=== PATIENT | male | born 1975 | race Caucasian/White ===

== ENCOUNTER 2017-05-15 10:15 | Emergency (ER) | payer MEDICARE, OTHER ==
[2017-05-15 10:19] VITALS: BP 136/84; PULSE 80; RESP 20; TEMP 98
--- NOTE | 2017-05-15 10:48 | ED ---
General Adult HPI - General Chief complaint: ENT Stated complaint: tooth problems Time Seen by Provider: 05/15/17 10:24 Source: patient, RN notes reviewed Mode of arrival: ambulatory Limitations: no limitations - History of Present Illness Initial comments: Patient is a pleasant 41-year-old male presenting to the emergency department complaining of sinus problems. Patient has had several episodes since having teeth pulled. Patient states when he states when he had teeth pulled a perforated is sinus. Patient has had sinus infections several times since then. Patient ate Augmentin has worked well previously for him. Patient states he was recently on amoxicillin however that does not seem to be helping. Patient has sinus congestion and states he can taste infection. Patient also has a little bit of sore throat. No fevers. Patient does have an appointment Tuesday with his oral maxillary facial surgeon. - Related Data Previous Rx's Medication Instructions Recorded Amoxic-Pot Clav 875-125Mg 1 tab PO Q12HR #20 tablet 05/15/17 [Augmentin 875-125] Allergies Allergy/AdvReac Type Severity Reaction Status Date / Time No Known Allergies Allergy Verified 05/15/17 10:19 Review of Systems ROS Statement: Those systems with pertinent positive or pertinent negative responses have been documented in the HPI. ROS Other: All systems not noted in ROS Statement are negative. Constitutional: Denies: fever Eyes: Denies: eye pain ENT: Reports: throat pain, congestion. Denies: ear pain Respiratory: Denies: dyspnea Cardiovascular: Denies: chest pain Endocrine: Denies: fatigue Gastrointestinal: Denies: abdominal pain Genitourinary: Denies: dysuria Musculoskeletal: Denies: back pain Skin: Denies: rash Neurological: Denies: weakness Past Medical History Additional Past Medical History / Comment(s): broken arm, ankyllosis spondylitis , osteoporosis, joint pain History of Any Multi-Drug Resistant Organisms: None Reported Past Surgical History: No Surgical Hx Reported Additional Past Surgical History / Comment(s): left jaw surgery by Dr Toribio Past Psychological History: No Psychological Hx Reported Smoking Status: Current every day smoker Past Alcohol Use History: None Reported Past Drug Use History: None Reported General Exam Limitations: no limitations General appearance: alert, in no apparent distress Head exam: Present: atraumatic Eye exam: Present: normal appearance, PERRL ENT exam: Present: normal oropharynx, other (Patient does have tenderness over the right maxillary sinus. Upper mouth is edentulous without tenderness or erythema or swelling.) Neck exam: Present: normal inspection, lymphadenopathy. Absent: meningismus Respiratory exam: Present: normal lung sounds bilaterally Cardiovascular Exam: Present: regular rate, normal rhythm GI/Abdominal exam: Present: soft. Absent: tenderness Neurological exam: Present: alert Psychiatric exam: Present: normal affect, normal mood Skin exam: Present: normal color Course Vital Signs 05/15/17 10:17 Temperature 98.0 F Pulse Rate 80 Respiratory 20 Rate Blood Pressure 136/84 O2 Sat by Pulse 98 Oximetry Disposition Clinical Impression: Acute sinusitis Disposition: HOME SELF-CARE Condition: Stable Instructions: Sinusitis (ED) Additional Instructions: Please follow-up with your surgeon Tuesday as scheduled. Return for fevers, swelling, difficulty breathing, not tolerating fluids, worsening symptoms or other concerns. Prescriptions: Amoxic-Pot Clav 875-125Mg [Augmentin 875-125] 1 tab PO Q12HR #20 tablet Referrals: Giancarlo Farrell MD [REFERRING] - 1-2 days Elian Newsome DO [Doctor of Osteopathic Medicine] - 1-2 days Time of Disposition: 10:48
== END 2017-05-15 10:59 | disposition home or self-care (01) ==
LOC: EC 10:15
DX: J01.90 Acute sinusitis, unspecified (principal); R59.0 Localized enlarged lymph nodes; F17.200 Nicotine dependence, unspecified, uncomplicated; Z98.890 Other specified postprocedural states
CPT/HCPCS: 99283

== ENCOUNTER 2017-06-01 10:49 | Emergency (ER) | payer MEDICARE, OTHER ==
[2017-06-01 11:02] VITALS: BP 136/90; PULSE 79; RESP 17; TEMP 98
--- NOTE | 2017-06-01 11:36 | ED ---
General Adult HPI - General Chief complaint: ENT Stated complaint: sinus infection Time Seen by Provider: 06/01/17 11:21 Source: patient, RN notes reviewed, old records reviewed Mode of arrival: ambulatory Limitations: no limitations - History of Present Illness Initial comments: This is a 42-year-old male to the ER for evaluation of sinus infection. Patient concern for causes of sinus infections states he has had multiple dental issues. Patient does have ENT but has not been able to make it to the operative history. Patient denies any fevers, no significant headaches. No difficulties with breathing. No travel history no sick contacts. Patient states he usually takes antibiotics when this happens. Patient has no other complaints - Related Data Previous Rx's Medication Instructions Recorded Levofloxacin [Levaquin] 750 mg PO DAILY #7 tab 06/01/17 Allergies Allergy/AdvReac Type Severity Reaction Status Date / Time No Known Allergies Allergy Verified 06/01/17 11:38 Review of Systems ROS Statement: Those systems with pertinent positive or pertinent negative responses have been documented in the HPI. ROS Other: All systems not noted in ROS Statement are negative. Past Medical History Additional Past Medical History / Comment(s): broken arm, ankyllosis spondylitis , osteoporosis, joint pain History of Any Multi-Drug Resistant Organisms: None Reported Past Surgical History: No Surgical Hx Reported Additional Past Surgical History / Comment(s): left jaw surgery by Dr Toribio Past Psychological History: No Psychological Hx Reported Smoking Status: Current every day smoker Past Alcohol Use History: None Reported Past Drug Use History: None Reported General Exam Limitations: no limitations General appearance: alert, in no apparent distress Head exam: Present: atraumatic, normocephalic, normal inspection Eye exam: Present: normal appearance, PERRL, EOMI. Absent: scleral icterus, conjunctival injection, periorbital swelling ENT exam: Present: normal exam, mucous membranes moist Neck exam: Present: normal inspection. Absent: tenderness, meningismus, lymphadenopathy Respiratory exam: Present: normal lung sounds bilaterally. Absent: respiratory distress, wheezes, rales, rhonchi, stridor Cardiovascular Exam: Present: regular rate, normal rhythm, normal heart sounds. Absent: systolic murmur, diastolic murmur, rubs, gallop, clicks GI/Abdominal exam: Present: soft, normal bowel sounds. Absent: distended, tenderness, guarding, rebound, rigid Extremities exam: Present: normal inspection, full ROM, normal capillary refill. Absent: tenderness, pedal edema, joint swelling, calf tenderness Back exam: Present: normal inspection Neurological exam: Present: alert, oriented X3, CN II-XII intact Psychiatric exam: Present: normal affect, normal mood Skin exam: Present: warm, dry, intact, normal color. Absent: rash Course Vital Signs 06/01/17 10:58 Temperature 98.0 F Pulse Rate 79 Respiratory 17 Rate Blood Pressure 136/90 O2 Sat by Pulse 96 Oximetry Medical Decision Making - Medical Decision Making 42 female here for evaluation regarding acute on chronic sinusitis, patient given antibiotics, no acute distress and we'll discharge home Disposition Clinical Impression: Acute sinusitis, Chronic sinusitis Disposition: HOME SELF-CARE Condition: Good Instructions: Sinusitis (ED) Prescriptions: Levofloxacin [Levaquin] 750 mg PO DAILY #7 tab Referrals: Denis Lepe MD [STAFF PHYSICIAN] - 1-2 days
== END 2017-06-01 11:51 | disposition home or self-care (01) ==
LOC: EC 10:49
DX: J32.9 Chronic sinusitis, unspecified (principal); J01.90 Acute sinusitis, unspecified; F17.200 Nicotine dependence, unspecified, uncomplicated
CPT/HCPCS: 99283

== ENCOUNTER 2017-11-01 13:01 | Emergency (ER) | payer MEDICARE, OTHER ==
[2017-11-01 13:06] VITALS: BP 125/89; RESP 18; TEMP 97.1
[2017-11-01] MEDS ORDERED: IBUPROFEN 600 MG TAB PO STA (13:20)
--- NOTE | 2017-11-01 13:24 | ED ---
Skin/Abscess/FB HPI - General Chief complaint: Skin/Abscess/Foreign Body Stated complaint: hand infection Time Seen by Provider: 11/01/17 13:09 Source: patient Mode of arrival: ambulatory Limitations: no limitations - History of Present Illness Initial comments: 42-year-old male patient presented to the emergency department today for evaluation of an infection to his right hand. Patient states that he started developing redness and a wound on Tuesday. States that over the weekend the area has become more red and painful. States that today it is draining pus. He denies any fever or chills this. Denies any nausea or vomiting. States he has not work at this time and has had no wounds in his hand. Denies ever having similar symptoms to this. Patient denies any recent rash, shortness breath, chest pain, abdominal pain, diarrhea, constipation, back pain, numbness , tingling, dizziness, weakness, hematuria, dysuria, urinary urgency, urinary frequency, headache, visual changes, or any other complaints. - Related Data Previous Rx's Medication Instructions Recorded Levofloxacin [Levaquin] 750 mg PO DAILY #7 tab 06/01/17 Sulfamethoxazole/Trimethoprim 1 each PO BID #20 tablet 11/01/17 [Bactrim DS 800-160 mg] Allergies Allergy/AdvReac Type Severity Reaction Status Date / Time No Known Allergies Allergy Verified 11/01/17 13:03 Review of Systems ROS Statement: Those systems with pertinent positive or pertinent negative responses have been documented in the HPI. ROS Other: All systems not noted in ROS Statement are negative. Past Medical History Additional Past Medical History / Comment(s): broken arm, ankyllosis spondylitis , osteoporosis, joint pain History of Any Multi-Drug Resistant Organisms: None Reported Past Surgical History: No Surgical Hx Reported Additional Past Surgical History / Comment(s): left jaw surgery by Dr Toribio Past Psychological History: No Psychological Hx Reported Smoking Status: Current every day smoker Past Alcohol Use History: None Reported Past Drug Use History: None Reported General Exam Limitations: no limitations General appearance: alert, in no apparent distress, anxious, other (This is a well-developed, well-nourished adult male patient in no acute distress. Vital signs upon presentation were temperature 97.1F, pulse 1:15, respirations 18, blood pressure 125/89, pulse ox 99% on room air.) Eye exam: Present: normal appearance, PERRL, EOMI. Absent: scleral icterus, conjunctival injection, periorbital swelling ENT exam: Present: normal exam, normal oropharynx, mucous membranes moist Neck exam: Present: normal inspection. Absent: tenderness, meningismus, lymphadenopathy Respiratory exam: Present: normal lung sounds bilaterally. Absent: respiratory distress, wheezes, rales, rhonchi, stridor Cardiovascular Exam: Present: normal rhythm, tachycardia, normal heart sounds. Absent: systolic murmur, diastolic murmur, rubs, gallop, clicks GI/Abdominal exam: Present: soft, normal bowel sounds. Absent: distended, tenderness, guarding, rebound, rigid Extremities exam: Present: full ROM, tenderness (Over the palmar aspect of the right hand), normal capillary refill, other (There is a small area of abscess with minimal surrounding erythema. Abscess area does exhibit purulent drainage. No streaking. Radial pulse 2+. No hand swelling.). Absent: normal inspection, pedal edema, joint swelling, calf tenderness Neurological exam: Present: alert, oriented X3, CN II-XII intact Psychiatric exam: Present: normal affect, normal mood Skin exam: Present: warm, dry, intact, normal color. Absent: rash Course Vital Signs 11/01/17 11/01/17 13:03 13:29 Temperature 97.1 F L Pulse Rate 115 H 110 H Respiratory 18 Rate Blood Pressure 125/89 O2 Sat by Pulse 99 Oximetry Medical Decision Making - Medical Decision Making 42-year-old male patient presented to the emergency department today for evaluation of infection to the palmar aspect of the right hand. Physical examination does reveal small area of abscess with surrounding erythema. Abscess is draining. Drainage. This has been cultured. Patient will be started on Bactrim. He is instructed to soak the hand at least 3 times per day and warm water. He is instructed to take ibuprofen for pain control. He is instructed to follow-up with his primary care physician for recheck in 1-2 days. Instructed to return here immediately for any new, worsening, or concerning symptoms. He verbalizes understanding and agrees with this plan. Disposition Clinical Impression: Abscess of right hand Disposition: HOME SELF-CARE Condition: Good Instructions: Abscess (ED), Warm Compress or Soak (ED) Additional Instructions: Do warm soaks at least 3 times per day. Take showers with antibacterial soaps. Complete antibiotic prescription in full. Follow-up with the primary care physician for recheck in 1-2 days. Return here immediately for any new, worsening, or concerning symptoms. Prescriptions: Sulfamethoxazole/Trimethoprim [Bactrim DS 800-160 mg] 1 each PO BID #20 tablet Referrals: None,Stated [Primary Care Provider] - 1-2 days Time of Disposition: 13:24
[2017-11-01 13:29] VITALS: PULSE 110
== END 2017-11-01 13:33 | disposition home or self-care (01) ==
LOC: EC 13:01
DX: L02.511 Cutaneous abscess of right hand (principal); F17.200 Nicotine dependence, unspecified, uncomplicated
CPT/HCPCS: 87070; 87077; 87186; 87205; 99283

== ENCOUNTER 2022-05-07 21:47 | Emergency (ER) | payer MEDICARE, OTHER ==
[2022-05-07 22:16] VITALS: BP 117/70; PULSE 84; RESP 16; TEMP 96.8
[2022-05-07] MEDS ORDERED: HYDROcodone/APAP 5-325MG 1 EACH TAB PO STA (22:46)
[2022-05-07] MEDS ORDERED: LIDOCAINE 1% INJ 10MG/ML (5 ML VIAL-PF) SQ ONE (22:49)
[2022-05-07] MEDS ORDERED: DIPH,PERTUS(ACELL)TETVAC-LF 0.5 ML VIAL IM ONE (22:49)
--- NOTE | 2022-05-07 23:11 | XR ---
EXAMINATION TYPE: XR hand complete LT DATE OF EXAM: 05/07/2022 COMPARISON: NONE HISTORY: Pain TECHNIQUE: 3 views FINDINGS: Metacarpals are intact. There are no erosions. There is deformity at the radiocarpal joint consistent with arthritis. No evidence of a fracture. No foreign body. IMPRESSION: Posttraumatic osteoarthritis of the radiocarpal joint. Old healed distal radius fracture. No acute fracture. No radiopaque foreign body.
--- NOTE | 2022-05-07 23:11 | ED ---
Wound/Laceration HPI - General Chief Complaint: Wound/Laceration Stated Complaint: Thumb Laceration Time Seen by Provider: 05/07/22 22:40 Source: patient Mode of arrival: EMS Limitations: no limitations - History of Present Illness Initial Comments: Patient is a 46-year-old male who presents to the emergency department with a chief complaint laceration. Patient states he cut his left thumb with a steak knife while trying to cut a popsicle. Patient states this was an accident. Denies numbness and tingling. Last tetanus unknown. - Related Data Previous Rx's Medication Instructions Recorded levoFLOXacin [Levaquin] 750 mg PO DAILY #7 tab 06/01/17 Sulfamethoxazole/Trimethoprim 1 each PO BID #20 tablet 11/01/17 [Bactrim DS 800-160 mg] Allergies Allergy/AdvReac Type Severity Reaction Status Date / Time No Known Allergies Allergy Verified 11/01/17 13:03 Review of Systems ROS Statement: Those systems with pertinent positive or pertinent negative responses have been documented in the HPI. ROS Other: All systems not noted in ROS Statement are negative. Past Medical History Additional Past Medical History / Comment(s): broken arm, ankyllosis spon dylitis, osteoporosis, joint pain History of Any Multi-Drug Resistant Organisms: MRSA Date of last positivie culture/infection: 11/01/17 MDRO Source:: HAND Past Surgical History: No Surgical Hx Reported Additional Past Surgical History / Comment(s): left jaw surgery by Dr Toribio Past Psychological History: No Psychological Hx Reported Past Alcohol Use History: None Reported Past Drug Use History: None Reported General Exam Limitations: no limitations General appearance: alert, in no apparent distress Head exam: Present: atraumatic, normocephalic, normal inspection Respiratory exam: Present: normal lung sounds bilaterally. Absent: respiratory distress, wheezes, rales, rhonchi, stridor Cardiovascular Exam: Present: regular rate, normal rhythm, normal heart sounds. Absent: systolic murmur, diastolic murmur, rubs, gallop, clicks GI/Abdominal exam: Present: soft, normal bowel sounds. Absent: distended, tenderness, guarding, rebound, rigid Neurological exam: Present: alert, oriented X3, CN II-XII intact Psychiatric exam: Present: normal affect, normal mood Skin exam: Present: warm, dry, intact, normal color. Absent: rash Course Vital Signs 05/07/22 22:13 Temperature 96.8 F L Pulse Rate 84 Respiratory 16 Rate Blood Pressure 117/70 O2 Sat by Pulse 100 Oximetry Procedures - Laceration Laceration #1 Consent Obtained: verbal consent Indication: laceration Site: hand (left) Description: irregular Depth: simple, single layer Sedation/Analgesia: none Anesthetic Used: lidocaine 1% Anesthesia Technique: local infiltration Pre-repair: wound explored, irrigated extensively Type of Sutures: nylon Size of Sutures: 5-0 Number of Sutures: 5 Technique: simple, interrupted, vertical mattress, other (figure 8) Patient Tolerated Procedure: well, no complications Medical Decision Making - Medical Decision Making This is a 46-year-old male presents with laceration. Thorough history and examination were performed. 4 cm laceration over the left lateral thumb. Full range of motion. Neurovascular intact. Laceration was irrigated extensively and well approximated with 5 sutures. Patient tolerated procedure well with no complication. Tetanus updated. Dr. Evans is my attending. Disposition Clinical Impression: Laceration Disposition: HOME SELF-CARE Condition: Good Instructions (If sedation given, give patient instructions): Care For Your Stitches (ED), Laceration (ED) Additional Instructions: Leave wound uncovered. Keep wound clean and dry. Wash with a mild soap. Take Tylenol or anti-inflammatories such as Motrin for pain. Follow-up with primary care provider in 1-2 days. Return for suture removal in 7-10 days. Report back to the emergency department if you experience new, concerning, or worsening symptoms. Is patient prescribed a controlled substance at d/c from ED?: No Referrals: None,Stated [Primary Care Provider] - 1-2 days Time of Disposition: 23:11
== END 2022-05-08 00:02 | disposition home or self-care (01) ==
LOC: EC 21:47
DX: S61.012A Laceration without foreign body of left thumb without damage to nail, initial encounter (principal); Z23 Encounter for immunization; W26.0XXA Contact with knife, initial encounter
CPT/HCPCS: 73130; 90715; 99282; 12002; 90471; J2001

== ENCOUNTER 2023-06-18 13:31 | Emergency (ER) | payer MEDICARE, OTHER ==
[2023-06-18 13:40] VITALS: BP 135/85; PULSE 100; RESP 20; TEMP 98.3
[2023-06-18 14:49] LABS: Appearance,Urine Turbid (Clear); Bilirubin,Urine Negative (Negative); Blood,Urine Small (Negative); Color,Urine Colorless; Glucose,Urine (UA) Negative (Negative); Ketones,Urine Negative (Negative); Leukocyte Esterase,Urine Large (Negative); Mucus,Urine Rare /hpf; Nitrite,Urine Negative (Negative); Protein,Urine Trace (Negative); RBC,Urine 27 /hpf (0-5); Specific Gravity,Urine 1.014 (1.001-1.035); Urobilinogen,Urine <2.0 mg/dL (<2.0); WBC,Urine >182 /hpf (0-5)
[2023-06-18] MEDS ORDERED: cefTRIAXone 1,000 MG VIAL (IM USE) IM STA (15:02)
[2023-06-18] MEDS ORDERED: DOXYCYCLINE 100 MG CAP PO STA (15:04)
[2023-06-18] MEDS ORDERED: metroNIDAZOLE 500 MG TAB PO STA (15:04)
--- NOTE | 2023-06-18 15:07 | ED ---
General Adult HPI - General Chief complaint: Urogenital Stated complaint: pain during bathroom Time Seen by Provider: 06/18/23 13:44 Source: patient, RN notes reviewed, old records reviewed Mode of arrival: ambulatory Limitations: no limitations - History of Present Illness Initial comments: Patient is a 48-year-old male who presents emergency Department complaining of penile discharge. Has been ongoing for 4-5 days. Does endorse recent unprotected sex. No history of STDs. States the discharge is white. Endorses some burning with urination as well. Denies any abdominal pain, nausea, vomiting. Denies any fevers or chills. Has no other acute symptoms. Concerned that he may have an STD. Presents for further evaluation. - Related Data Previous Rx's Medication Instructions Recorded levoFLOXacin [Levaquin] 750 mg PO DAILY #7 tab 06/01/17 Sulfamethoxazole/Trimethoprim 1 each PO BID #20 tablet 11/01/17 [Bactrim DS 800-160 mg] Doxycycline Hyclate 100 mg PO BID 14 Days #28 capsule 06/18/23 Allergies Allergy/AdvReac Type Severity Reaction Status Date / Time No Known Allergies Allergy Verified 06/18/23 13:40 Review of Systems ROS Statement: Those systems with pertinent positive or pertinent negative responses have been documented in the HPI. Review of Systems: CONST: Denies fever EYES: Denies blurry vision ENT: Denies nasal congestion C/V: Denies Chest pain RESP: Denies shortness of breath GI: Denies abdominal pain : Endorses dysuria SKIN: Denies rash. MSK: Denies joint pain. NEURO: Denies headache ROS Other: All systems not noted in ROS Statement are negative. Past Medical History Additional Past Medical History / Comment(s): broken arm, ankyllosis spondylitis, osteoporosis, joint pain History of Any Multi-Drug Resistant Organisms: MRSA Date of last positivie culture/infection: 11/01/17 MDRO Source:: HAND Past Surgical History: No Surgical Hx Reported Additional Past Surgical History / Comment(s): left jaw surgery by Dr Toribio Past Psychological History: No Psychological Hx Reported Smoking Status: Current every day smoker Past Alcohol Use History: None Reported Past Drug Use History: None Reported General Exam - General Exam Comments Initial Comments: General: Appears in no acute distress. HEAD: Normal with no signs of head trauma. EYES: EOMI. ENT: Hearing grossly intact. RESPIRATORY: No respiratory distress. C/V: Regular rate and rhythm. ABD: Abdomen is nondistended. No tenderness to palpation. : White discharge present at the tip of the penis. No rashes or lesions present. No tenderness to palpation. No scrotal edema or rashes. EXT: No obvious deformity. SKIN: No rashes or lesions observed on exposed skin. NEURO: Alert and oriented. Limitations: no limitations Course Vital Signs 06/18/23 13:37 Temperature 98.3 F Pulse Rate 100 Respiratory 20 Rate Blood Pressure 135/85 O2 Sat by Pulse 98 Oximetry Medical Decision Making - Medical Decision Making Was pt. sent in by a medical professional or institution (, PA, ENDO TECH, urgent care, hospital, or correction...) When possible be specific @ -No Did you speak to anyone other than the patient for history (EMS, parent, family, police, friend...)? What history was obtained from this source @ -No Did you review nursing and triage notes (agree or disagree)? Why? @ -I reviewed and agree with nursing and triage notes Were old charts reviewed (outside hosp., previous admission, EMS record, old EKG, old radiological studies, urgent care reports/EKG's, correction records)? Report findings @ -No old charts were reviewed Differential Diagnosis (chest pain, altered mental status, abdominal pain women, abdominal pain men, vaginal bleeding, weakness, fever, dyspnea, syncope, headache, dizziness, GI bleed, back pain, seizure, CVA, palpatations, mental health, musculoskeletal)? @ -UTI, STD, chlamydia, gonorrhea. This list is not all inclusive. EKG interpreted by me (3pts min.). @ -None done X-rays interpreted by me (1pt min.). @ -None done CT interpreted by me (1pt min.). @ -None done U/S interpreted by me (1pt. min.). @ -None done What testing was considered but not performed or refused? (CT, X-rays, U/S, labs)? Why? @ -None What meds were considered but not given or refused? Why? @ -None Did you discuss the management of the patient with other professionals (professionals i.e. , PA, ENDO TECH, lab, RT, psych nurse, director of social work, ortho tech, teacher, dog license officer supervisor, clinical case manager)? Give summary @ -No Was smoking cessation discussed for >3mins.? @ -No Was critical care preformed (if so, how long)? @ -No Were there social determinants of health that impacted care today? How? (Homelessness, low income, unemployed, alcoholism, drug addiction, transportation, low edu. Level, literacy, decrease access to med. care, shelter, rehab)? @ -No Was there de-escalation of care discussed even if they declined (Discuss DNR or withdrawal of care, Hospice)? DNR status @ -No What co-morbidities impacted this encounter? (DM, HTN, Smoking, COPD, CAD, Cancer, CVA, ARF, Chemo, Hep., AIDS, mental health diagnosis, sleep apnea, morbid obesity)? @ -None Was patient admitted / discharged? Hospital course, mention meds given and route, prescriptions, significant lab abnormalities, going to OR and other pertinent info. @ -Based on the patient's presentation and physical exam, it does appear he is having an STD. We will obtain a urinalysis and send off urine studies for chlamydia and gonorrhea. He was in agreement this plan. Vital signs within acceptable limits. He'll be treated for STD prophylaxis with a dose of IM Rocephin, 2 g of oral Flagyl, as well as be started on doxycycline. He'll be given a prescription for 2 weeks of doxycycline as well as he is symptomatic. Patient was in agreement with this plan. Patient's urinalysis shows signs of infection. Likely secondary to sexual transmitted disease and urethritis. Patient will be discharged home at this time. Strict return precautions discussed. Discussed safe sex practices. I will provide the patient with a prescription for doxycycline. I instructed the patient to follow up with their PCP in the next 1-3 days. I explained that the patient should return to the emergency department if they experience any worsening symptoms. Strict return precautions were discussed with the patient. The patient expressed understanding of these instructions. I answered all questions that the patient had. The patient was discharged home in good condition with their prescriptions and follow up information. Undiagnosed new problem with uncertain prognosis? @ -No Drug Therapy requiring intensive monitoring for toxicity (Heparin, Nitro, Insulin, Cardizem)? @ -No Were any procedures done? @ -No Diagnosis/symptom? @ -Sexually transmitted disease, urethritis Acute, or Chronic, or Acute on Chronic? @ -Acute Uncomplicated (without systemic symptoms) or Complicated (systemic symptoms)? @ -Uncomplicated Side effects of treatment? @ -No Exacerbation, Progression, or Severe Exacerbation? @ -No Poses a threat to life or bodily function? How? (Chest pain, USA, MA, pneumonia, PE, COPD, DKA, ARF, appy, cholecystitis, CVA, Diverticulitis, Homicidal, Suicidal, threat to staff... and all critical care pts) @ -No - Lab Data Lab Results 06/18/23 Range/Units 14:21 Urine Color Colorless Urine Appearance Turbid (Clear) Urine pH 7.0 (5.0-8.0) Ur Specific Jolon 1.014 (1.001-1.035) Urine Protein Trace H (Negative) Urine Glucose (UA) Negative (Negative) Urine Ketones Negative (Negative) Urine Blood Small H (Negative) Urine Nitrite Negative (Negative) Urine Bilirubin Negative (Negative) Urine Urobilinogen <2.0 (<2.0) mg/dL Ur Leukocyte Esterase Large H (Negative) Urine RBC 27 H (0-5) /hpf Urine WBC >182 H (0-5) /hpf Urine WBC Clumps Few H (None) /hpf Urine Mucus Rare H (None) /hpf Disposition Clinical Impression: Sexually transmissible disease, UTI (urinary tract infection), Urethritis Disposition: HOME SELF-CARE Condition: Good Instructions (If sedation given, give patient instructions): Sexually Tr ansmitted Diseases (ED), Safe Sex Practices (ED), Urinary Tract Infection in Men (ED) Prescriptions: Doxycycline Hyclate 100 mg PO BID 14 Days #28 capsule Is patient prescribed a controlled substance at d/c from ED?: No Referrals: None,Stated [Primary Care Provider] - 1-2 days Forms: Area PCPs Time of Disposition: 15:00
[2023-06-21 14:29] LABS: C. trachomatis,PCR Negative (Negative)
[2023-06-21 14:30] LABS: N. gonorrhoeae,PCR Positive (Negative)
== END 2023-06-18 15:29 | disposition home or self-care (01) ==
LOC: EC 13:31
DX: A64 Unspecified sexually transmitted disease (principal); N34.2 Other urethritis; F17.200 Nicotine dependence, unspecified, uncomplicated
CPT/HCPCS: 81001; 87491; 87591; 87086; 99283; 96372; J0696

== ENCOUNTER 2024-03-05 22:27 | Emergency (ER) | payer MEDICARE, OTHER ==
--- NOTE | 2024-03-05 22:58 | ED ---
Dizziness HPI - General Source: patient, RN notes reviewed Mode of arrival: EMS Limitations: no limitations <Karin Mcmanus - Last Filed: 03/05/24 23:03> <Hardik Riley - Last Filed: 03/06/24 02:04> - General Chief Complaint: Dizziness Stated Complaint: Dizziness,Vomiting Time Seen by Provider: 03/05/24 22:40 - History of Present Illness Initial Comments: Quick Note-this is a 48-year-old male who presents emergency department chief complaint of intermittent dizziness, nausea and vomiting over the past 5 days. He states that he experiences a room spinning sensation when he stands up. Denies headaches, chest pain or pressure, blurry vision, double vision, tinnitus, focal neurological deficits. He denies history of migraines.States that he feels he has the flu. (Karin Mcmanus) 48-year-old male with no significant past medical history presenting to the ED with chief complaint of dizziness. Patient states onset 5 days ago of dizziness which she describes as a room spinning with some associated nausea and vomiting. Reports over the past 5 days symptoms have been improving however with positional changes will become dizzy, nauseous again. Most recently patient reports he has developed some discomfort diffusely of his abdomen which he relates to nausea and dry heaving. No chest pain or shortness of breath. No fever or chills. Reports similar symptoms 5 years ago however was never evaluated for this and is unsure what caused this. No other complaints at this time. (Hardik Riley) - Related Data Previous Rx's Medication Instructions Recorded levoFLOXacin [Levaquin] 750 mg PO DAILY #7 tab 06/01/17 Sulfamethoxazole/Trimethoprim 1 each PO BID #20 tablet 11/01/17 [Bactrim DS 800-160 mg] Doxycycline Hyclate 100 mg PO BID 14 Days #28 capsule 06/18/23 Meclizine [Antivert] 25 mg PO TID PRN #16 tab 03/06/24 Ondansetron Odt [Zofran Odt] 4 mg PO Q8HR PRN #10 tab 03/06/24 Allergies Allergy/AdvReac Type Severity Reaction Status Date / Time No Known Allergies Allergy Verified 03/05/24 22:47 Review of Systems ROS Other: All systems not noted in ROS Statement are negative. <Karin Mcmanus - Last Filed: 03/05/24 23:03> ROS Other: All systems not noted in ROS Statement are negative. <RosemaryHardik - Last Filed: 03/06/24 02:04> ROS Statement: Those systems with pertinent positive or pertinent negative responses have been documented in the HPI. Past Medical History Additional Past Medical History / Comment(s): broken arm, ankyllosis spondylitis, osteoporosis, joint pain History of Any Multi-Drug Resistant Organisms: MRSA Date of last positivie culture/infection: 11/01/17 MDRO Source:: HAND Past Surgical History: No Surgical Hx Reported Additional Past Surgical History / Comment(s): left jaw surgery by Dr Toribio Past Psychological History: No Psychological Hx Reported Smoking Status: Former smoker Past Alcohol Use History: None Reported Past Drug Use History: None Reported <Karin Mcmanus - Last Filed: 03/05/24 23:03> General Exam Limitations: no limitations <Karin Mcmanus - Last Filed: 03/05/24 23:03> General appearance: alert, in no apparent distress Eye exam: Present: PERRL, EOMI, other (Right beating nystagmus with no vertical skew and correcting saccade on head impulse testing.) ENT exam: Present: mucous membranes moist Neck exam: Present: normal inspection Respiratory exam: Present: normal lung sounds bilaterally Cardiovascular Exam: Present: regular rate, normal rhythm GI/Abdominal exam: Present: soft, normal bowel sounds. Absent: distended, tenderness, guarding, rebound, rigid Extremities exam: Present: other (Strength and sensation equal and intact of bi lateral upper lower extremities. Radial pulses intact. DP/PT pulses intact.) Neurological exam: Present: alert, oriented X3, CN II-XII intact ([id number], [id number], rapid alternating hand movements intact.), normal gait Skin exam: Present: warm, dry <Hardik Riley - Last Filed: 03/06/24 02:04> - General Exam Comments Initial Comments: Visual Physical Exam Vital signs reviewed General: Well-appearing, nontoxic, no acute distress. Head: Normocephalic, atraumatic Eyes: PERRLA, EOMI ENT: Airway patent Chest: Nonlabored breathing Skin: No visual rash, normal skin tone Neuro: Alert and oriented 3 Musculoskeletal: No gross abnormalities (Stieler,Karin) Course <Hardik Riley - Last Filed: 03/06/24 02:04> Vital Signs 03/05/24 03/06/24 22:43 00:00 Temperature 98.4 F Pulse Rate 86 88 Respiratory 20 16 Rate Blood Pressure 134/87 136/82 O2 Sat by Pulse 98 97 Oximetry - Reevaluation(s) Reevaluation #1: 03/06/24 01:02 Patient reevaluated. Reports he is feeling significantly improved after being provided Zofran, meclizine, IV fluids. (Hardik Riley) Medical Decision Making <Karin Mcmanus - Last Filed: 03/05/24 23:03> - Lab Data Result diagrams: 03/05/24 23:08 03/06/24 00:00 <Hardik Riley - Last Filed: 03/06/24 02:04> - Medical Decision Making I completed the quick note portion of this chart signed Karin Mcmanus PA-C (Karin Mcmanus) Was pt. sent in by a medical professional or institution (MICAELA Donald, MACHINE HOOP MAKER, urgent care, hospital, or jail...) When possible be specific @ -No Did you speak to anyone other than the patient for history (EMS, parent, family, police, friend...)? What history was obtained from this source @ -No Did you review nursing and triage notes (agree or disagree)? Why? @ -I reviewed and agree with nursing and triage notes Were old charts reviewed (outside hosp., previous admission, EMS record, old EKG, old radiological studies, urgent care reports/EKG's, jail records)? Report findings @ -No old charts were reviewed Differential Diagnosis (chest pain, altered mental status, abdominal pain women, abdominal pain men, vaginal bleeding, weakness, fever, dyspnea, syncope, headache, dizziness, GI bleed, back pain, seizure, CVA, palpatations, mental health, musculoskeletal)? @ -Differential Dizziness: Benign paroxysmal positional Vertigo, Menieres disease, otitis media, acoustic neuroma, vertebrobasilar insufficiency, cerebellar stroke, encephalitis, hypovolemic, arrhythmia, coronary artery syndrome, anemia, this is not meant to be an all-inclusive list EKG interpreted by me (3pts min.). @ -EKG interpreted by me showing a sinus rhythm with nonspecific findings at 86 bpm. IN 150, QRS 99, QT/QTc 350/94. X-rays interpreted by me (1pt min.). @ -None done CT interpreted by me (1pt min.). @ -None done U/S interpreted by me (1pt. min.). @ -None done What testing was considered but not performed or refused? (CT, X-rays, U/S, labs)? Why? @ -CT brain was considered however patient feels markedly improved after medications and neurologic exam consistent with peripheral findings of vertigo. What meds were considered but not given or refused? Why? @ -None Did you discuss the management of the patient with other professionals (professionals i.e. , PA, MACHINE HOOP MAKER, lab, RT, psych nurse, social science analyst, bridge tender, teacher, grant officer, case packer)? Give summary @ -No Was smoking cessation discussed for >3mins.? @ -No Was critical care preformed (if so, how long)? @ -No Were there social determinants of health that impacted care today? How? (Homelessness, low income, unemployed, alcoholism, drug addiction, transportation, low edu. Level, literacy, decrease access to med. care, care home, rehab)? @ -No Was there de-escalation of care discussed even if they declined (Discuss DNR or withdrawal of care, Hospice)? DNR status @ -No What co-morbidities impacted this encounter? (DM, HTN, Smoking, COPD, CAD, Cancer, CVA, ARF, Chemo, Hep., AIDS, mental health diagnosis, sleep apnea, morbid obesity)? @ -None Was patient admitted / discharged? Hospital course, mention meds given and route, prescriptions, significant lab abnormalities, going to OR and other pertinent info. @ -Discharge 48-year-old male presenting to the ED with complaints of dizziness with associated nausea and vomiting especially worse with positional changes. Exam significant for right beating nystagmus with no vertical skew and a correcting saccade on head impulse testing. Remainder of cranial nerve exam and [id number]-fr-[id number], efch-ho-lfpe, rapid alternating hand movements unremarkable. Patient ambulates without significant difficulty and reports no significant increases of symptoms. Laboratory studies largely unremarkable. Symptoms likely secondary to vertigo. Discharged home with prescriptions for Zofran and meclizine. Advise close follow-up with PCP and ENT. Discussed strict return precautions with patient who verbalized agreement. Undiagnosed new problem with uncertain prognosis? @ -No Drug Therapy requiring intensive monitoring for toxicity (Heparin, Nitro, Insulin, Cardizem)? @ -No Were any procedures done? @ -No Diagnosis/symptom? @ -Vertigo Acute, or Chronic, or Acute on Chronic? @ -Acute Uncomplicated (without systemic symptoms) or Complicated (systemic symptoms)? @ -Uncomplicated Side effects of treatment? @ -No Exacerbation, Progression, or Severe Exacerbation? @ -No Poses a threat to life or bodily function? How? (Chest pain, USA, MA, pneumonia, PE, COPD, DKA, ARF, appy, cholecystitis, CVA, Diverticulitis, Homicidal, Suicidal, threat to staff... and all critical care pts) @ -No (Hardik Riley) - Lab Data Lab Results 03/05/24 03/06/24 03/06/24 Range/Units 23:08 00:00 00:05 WBC 10.9 H (3.8-10.6) k/uL RBC 5.13 (4.30-5.90) m/uL Hgb 15.3 (13.0-17.5) gm/dL Hct 46.4 (39.0-53.0) % MCV 90.4 (80.0-100.0) fL MCH 29.8 (25.0-35.0) pg MCHC 33.0 (31.0-37.0) g/dL RDW 13.0 (11.5-15.5) % Plt Count 349 (150-450) k/uL MPV 8.9 Neutrophils % 61 % Lymphocytes % 26 % Monocytes % 6 % Eosinophils % 5 % Basophils % 1 % Neutrophils # 6.6 (1.3-7.7) k/uL Lymphocytes # 2.8 (1.0-4.8) k/uL Monocytes # 0.7 (0-1.0) k/uL Eosinophils # 0.5 (0-0.7) k/uL Basophils # 0.1 (0-0.2) k/uL PT 10.2 (10.0-12.5) sec INR 0.9 (<1.2) APTT 22.3 (22.0-30.0) sec Sodium 137 (137-145) mmol/L Potassium 4.0 (3.5-5.1) mmol/L Chloride 102 (98-107) mmol/L Carbon Dioxide 27 (22-30) mmol/L Anion Gap 8 mmol/L BUN 9 (9-20) mg/dL Creatinine 0.80 (0.66-1.25) mg/dL Est GFR (CKD-EPI)AfAm >90 (>60 ml/min/1.73 sqM) Est GFR (CKD-EPI)NonAf >90 (>60 ml/min/1.73 sqM) Glucose 100 H (74-99) mg/dL Calcium 9.2 (8.4-10.2) mg/dL Magnesium 2.0 (1.6-2.3) mg/dL Total Bilirubin 0.4 (0.2-1.3) mg/dL AST 24 (17-59) U/L ALT 29 (4-49) U/L Alkaline Phosphatase 109 (38-126) U/L Troponin I (0.000-0.034) ng/mL Total Protein 7.5 (6.3-8.2) g/dL Albumin 4.1 (3.5-5.0) g/dL Amylase 50 (30-110) U/L Lipase 50 (23-300) U/L 03/06/24 Range/Units 00:05 WBC (3.8-10.6) k/uL RBC (4.30-5.90) m/uL Hgb (13.0-17.5) gm/dL Hct (39.0-53.0) % MCV (80.0-100.0) fL MCH (25.0-35.0) pg MCHC (31.0-37.0) g/dL RDW (11.5-15.5) % Plt Count (150-450) k/uL MPV Neutrophils % % Lymphocytes % % Monocytes % % Eosinophils % % Basophils % % Neutrophils # (1.3-7.7) k/uL Lymphocytes # (1.0-4.8) k/uL Monocytes # (0-1.0) k/uL Eosinophils # (0-0.7) k/uL Basophils # (0-0.2) k/uL PT (10.0-12.5) sec INR (<1.2) APTT (22.0-30.0) sec Sodium (137-145) mmol/L Potassium (3.5-5.1) mmol/L Chloride (98-107) mmol/L Carbon Dioxide (22-30) mmol/L Anion Gap mmol/L BUN (9-20) mg/dL Creatinine (0.66-1.25) mg/dL Est GFR (CKD-EPI)AfAm (>60 ml/min/1.73 sqM) Est GFR (CKD-EPI)NonAf (>60 ml/min/1.73 sqM) Glucose (74-99) mg/dL Calcium (8.4-10.2) mg/dL Magnesium (1.6-2.3) mg/dL Total Bilirubin (0.2-1.3) mg/dL AST (17-59) U/L ALT (4-49) U/L Alkaline Phosphatase (38-126) U/L Troponin I <0.012 (0.000-0.034) ng/mL Total Protein (6.3-8.2) g/dL Albumin (3.5-5.0) g/dL Amylase (30-110) U/L Lipase (23-300) U/L Disposition <Karin Mcmanus - Last Filed: 03/05/24 23:03> Is patient prescribed a controlled substance at d/c from ED?: No Time of Disposition: 02:04 <Hardik Riley - Last Filed: 03/06/24 02:04> Clinical Impression: Vertigo Disposition: HOME SELF-CARE Condition: Good Instructions (If sedation given, give patient instructions): Vertigo (ED) Additional Instructions: Please return to the Emergency Department if symptoms worsen or any other concerns. Please follow-up with your PCP and ENT. Prescriptions: Meclizine [Antivert] 25 mg PO TID PRN #16 tab PRN Reason: Vertigo Ondansetron Odt [Zofran Odt] 4 mg PO Q8HR PRN #10 tab PRN Reason: Nausea Referrals: None,Stated [Primary Care Provider] - 1-2 days Virgilio Fregoso MD [STAFF PHYSICIAN] - 1-2 days
[2024-03-05 23:30] LABS: Basophils # (A) 0.1 k/uL (0-0.2); Basophils % (A) 1 %; Eosinophils # (A) 0.5 k/uL (0-0.7); Eosinophils % (A) 5 %; HCT 46.4 % (39.0-53.0); HGB 15.3 gm/dL (13.0-17.5); Lymphocytes # (A) 2.8 k/uL (1.0-4.8); Lymphocytes % (A) 26 %; MCH 29.8 pg (25.0-35.0); MCV 90.4 fL (80.0-100.0); Mean Platelet Volume 8.9; Monocytes # (A) 0.7 k/uL (0-1.0); Monocytes % (A) 6 %; Neutrophils # (A) 6.6 k/uL (1.3-7.7); Neutrophils % (A) 61 %; Platelet Count 349 k/uL (150-450); RBC 5.13 m/uL (4.30-5.90); WBC 10.9 k/uL (3.8-10.6)
[2024-03-06] MEDS: MECLIZINE 12.5 MG TAB PO STA (00:20)
[2024-03-06] MEDS: ONDANSETRON 4 MG/2 ML VIAL IVP STA (00:20)
[2024-03-06 00:21] VITALS: RESP 16
[2024-03-06] MEDS: SODIUM CHLORIDE 0.9% 1,000 ML IV STA (00:23)
[2024-03-06 00:39] LABS: ALT 29 U/L (4-49); AST 24 U/L (17-59); African American GFR (CKD) >90 (>60 ml/min/1.73 sqM); Albumin 4.1 g/dL (3.5-5.0); Alkaline Phosphatase 109 U/L (38-126); Amylase 50 U/L (30-110); Anion Gap 8 mmol/L; Blood Urea Nitrogen 9 mg/dL (9-20); Calcium 9.2 mg/dL (8.4-10.2); Carbon Dioxide 27 mmol/L (22-30); Chloride 102 mmol/L (98-107); Glucose 100 mg/dL (74-99); Lipase 50 U/L (23-300); Non-African American GFR(CKD) >90 (>60 ml/min/1.73 sqM); Sodium 137 mmol/L (137-145); Total Bilirubin 0.4 mg/dL (0.2-1.3); Total Protein 7.5 g/dL (6.3-8.2)
[2024-03-06 00:52] LABS: INR 0.9 (<1.2); Partial Thromboplastin Time 22.3 sec (22.0-30.0); Prothrombin Time 10.2 sec (10.0-12.5)
[2024-03-06 03:00] VITALS: BP 133/89; PULSE 83; TEMP 98
== END 2024-03-06 02:35 | disposition home or self-care (01) ==
LOC: EC 22:27
DX: R42 Dizziness and giddiness (principal); Z87.891 Personal history of nicotine dependence
CPT/HCPCS: 36415; 93005; 80053; 82150; 83690; 83735; 84484; 85025; 85610; 85730; 87636; 99284; 96374; 96361; J2405

== ENCOUNTER 2024-03-14 17:34 | Emergency (ER) | payer MEDICARE, OTHER ==
[2024-03-14 17:50] VITALS: RESP 16; TEMP 97.1
--- NOTE | 2024-03-14 17:58 | ED ---
Wound/Laceration HPI - General Chief Complaint: Wound/Laceration Stated Complaint: Laceration R Leg Time Seen by Provider: 03/14/24 17:57 Source: patient, RN notes reviewed Mode of arrival: EMS Limitations: no limitations - History of Present Illness Initial Comments: 48-year-old male presented to ER via EMS with a chief complaint of a leg laceration. Patient states he was using a razor blade to cut a piece of tape and accidentally hit his thigh. He denies any other injuries. He is not currently on any blood thinners. Tetanus is unknown. He denies any limited range of motion or paresthesias. No other complaints. - Related Data Previous Rx's Medication Instructions Recorded levoFLOXacin [Levaquin] 750 mg PO DAILY #7 tab 06/01/17 Sulfamethoxazole/Trimethoprim 1 each PO BID #20 tablet 11/01/17 [Bactrim DS 800-160 mg] Doxycycline Hyclate 100 mg PO BID 14 Days #28 capsule 06/18/23 Meclizine [Antivert] 25 mg PO TID PRN #16 tab 03/06/24 Ondansetron Odt [Zofran Odt] 4 mg PO Q8HR PRN #10 tab 03/06/24 Allergies Allergy/AdvReac Type Severity Reaction Status Date / Time No Known Allergies Allergy Verified 03/14/24 17:48 Review of Systems ROS Statement: Those systems with pertinent positive or pertinent negative responses have been documented in the HPI. ROS Other: All systems not noted in ROS Statement are negative. Past Medical History Additional Past Medical History / Comment(s): broken arm, ankyllosis spondylitis, osteoporosis, joint pain History of Any Multi-Drug Resistant Organisms: MRSA Date of last positivie culture/infection: 11/01/17 MDRO Source:: HAND Past Surgical History: No Surgical Hx Reported Additional Past Surgical History / Comment(s): left jaw surgery by Dr Toribio Past Psychological History: No Psychological Hx Reported Smoking Status: Former smoker Past Alcohol Use History: None Reported Past Drug Use History: None Reported General Exam Limitations: no limitations General appearance: alert, in no apparent distress Respiratory exam: Present: normal lung sounds bilaterally. Absent: respiratory distress, wheezes, rales, rhonchi, stridor Cardiovascular Exam: Present: regular rate, normal rhythm, normal heart sounds. Absent: systolic murmur, diastolic murmur, rubs, gallop, clicks Extremities exam: Present: normal inspection, full ROM, normal capillary refill. Absent: tenderness, pedal edema, joint swelling, calf tenderness Skin exam: Present: other (2 cm superficial laceration to right anterior thigh. No active bleeding. Distal pulses intact. Patient has full active range of motion of knee.) Course Vital Signs 03/14/24 17:40 Temperature 97.1 F L Pulse Rate 71 Respiratory 16 Rate Blood Pressure 128/74 O2 Sat by Pulse 98 Oximetry Procedures - Laceration Laceration #1 Consent Obtained: verbal consent Indication: laceration Site: lower extremity Size (cm): 2 Description: linear Depth: simple, single layer Anesthetic Used: lidocaine 1% Anesthesia Technique: local infiltration Amount (mls): 4 Pre-repair: wound explored, irrigated extensively, deep structures intact Type of Sutures: nylon Size of Sutures: 4-0 Number of Sutures: 7 Technique: simple, interrupted Patient Tolerated Procedure: well, no complications Medical Decision Making - Medical Decision Making Was pt. sent in by a medical professional or institution (MICAELA Donald, MANAGER LEGAL, urgent care, hospital, or group home...) When possible be specific @ -No Did you speak to anyone other than the patient for history (EMS, parent, family, police, friend...)? What history was obtained from this source @ -No Did you review nursing and triage notes (agree or disagree)? Why? @ -I reviewed and agree with nursing and triage notes Were old charts reviewed (outside hosp., previous admission, EMS record, old EKG, old radiological studies, urgent care reports/EKG's, group home records)? Report findings @ -No old charts were reviewed Differential Diagnosis (chest pain, altered mental status, abdominal pain women, abdominal pain men, vaginal bleeding, weakness, fever, dyspnea, syncope, headache, dizziness, GI bleed, back pain, seizure, CVA, palpatations, mental health, musculoskeletal)? @ -Laceration, abrasion, contusion, avulsion, foreign body this list is not meant to be all-inclusive EKG interpreted by me (3pts min.). @ -None X-rays interpreted by me (1pt min.). @ -None done CT interpreted by me (1pt min.). @ -None done U/S interpreted by me (1pt. min.). @ -None done What testing was considered but not performed or refused? (CT, X-rays, U/S, labs)? Why? @ -None What meds were considered but not given or refused? Why? @ -None Did you discuss the management of the patient with other professionals (professionals i.e. , PA, MANAGER LEGAL, lab, RT, psych nurse, addiction social worker, warehouse driver, teacher, student officer, wrapper caser)? Give summary @ -No Was smoking cessation discussed for >3mins.? @ -I discussed smoking cessation for greater than 3 minutes. The risk of smoking were discussed with the patient including but not limited to risks of cancer, stroke, coronary artery disease and COPD. Also discussed with patient were multiple methods of quitting smoking. Lastly we discussed the financial cost of smoking. Was critical care preformed (if so, how long)? @ -No Were there social determinants of health that impacted care today? How? (Homelessness, low income, unemployed, alcoholism, drug addiction, transportation, low edu. Level, literacy, decrease access to med. care, correction, rehab)? @ -No Was there de-escalation of care discussed even if they declined (Discuss DNR or withdrawal of care, Hospice)? DNR status @ -No What co-morbidities impacted this encounter? (DM, HTN, Smoking, COPD, CAD, Cancer, CVA, ARF, Chemo, Hep., AIDS, mental health diagnosis, sleep apnea, morbid obesity)? @ -Smoker Was patient admitted / discharged? Hospital course, mention meds given and route, prescriptions, significant lab abnormalities, going to OR and other pertinent info. @ -Discharge. 48-year-old male presented to the ER via EMS with a chief complaint of a thigh laceration. History and physical exam completed. Vitals stable. Patient no signs of acute distress and nontoxic-appearing. There was a 2 cm non actively bleeding superficial laceration to right anterior thigh approximately 2 inches superior to knee. Patient has full active range of motion the knee. Right lower extremity neurovascular intact. Tetanus updated. Laceration closed using 7 simple interrupted sutures. Patient tolerated procedure well. Advised removal in 10 to 14 days. Strict return parameters discussed. Patient discharged stable condition. Patient verbally expressed understanding and agreement with care plan. Case discussed with ED attending, Dr. Branham. Undiagnosed new problem with uncertain prognosis? @ -No Drug Therapy requiring intensive monitoring for toxicity (Heparin, Nitro, Insulin, Cardizem)? @ -No Were any procedures done? @ -No Diagnosis/symptom? @ -Laceration Acute, or Chronic, or Acute on Chronic? @ -Acute Uncomplicated (without systemic symptoms) or Complicated (systemic symptoms)? @ -Uncomplicated Side effects of treatment? @ -No Exacerbation, Progression, or Severe Exacerbation? @ -No Poses a threat to life or bodily function? How? (Chest pain, [place], NH, pneumonia, PE, COPD, DKA, ARF, appy, cholecystitis, CVA, Diverticulitis, Homicidal, Suicidal, threat to staff... and all critical care pts) @ -No Disposition Clinical Impression: Laceration Disposition: HOME SELF-CARE Condition: Stable Instructions (If sedation given, give patient instructions): Care For Your Stitches (ED) Additional Instructions: Please have sutures removed in 10 to 14 days. Monitor for signs of infection including surrounding redness, swelling or drainage. Return to the ER for any new or worsening concerns. Is patient prescribed a controlled substance at d/c from ED?: No Referrals: None,Stated [Primary Care Provider] - 1-2 days Forms: Area PCPs Time of Disposition: 18:32
[2024-03-14] MEDS: DIPH,PERTUS(ACELL)TETVAC-LF 0.5 ML VIAL IM ONE (18:39)
[2024-03-14] MEDS: LIDOCAINE 1% INJ 10MG/ML (20 ML MDV) SQ ONE (18:41)
[2024-03-14 20:08] VITALS: BP 122/76; PULSE 81
== END 2024-03-14 19:10 | disposition home or self-care (01) ==
LOC: EC 17:34
DX: S81.811A Laceration without foreign body, right lower leg, initial encounter (principal); Z23 Encounter for immunization; Z87.891 Personal history of nicotine dependence; W26.8XXA Contact with other sharp object(s), not elsewhere classified, initial encounter
CPT/HCPCS: 90715; 99283; 90471; 12001; J2001